=== PATIENT | male | born 1950 | race Caucasian/White ===

== ENCOUNTER 2024-02-25 19:21 | Inpatient (IN) | payer MEDICARE, OTHER ==
[~2024-02-25] VITALS: Ht 182.9 cm; Wt 106.1 kg
[2024-02-25] MEDS ORDERED: OXYCODONE/APAP 5-325 MG TABLET ONE (19:43)
[2024-02-25] MEDS ORDERED: LORAZEPAM 1 MG TABLET ONE (19:44)
[2024-02-25] MEDS ORDERED: CLONIDINE HCL 0.1 MG TABLET ONE (19:44)
[2024-02-25] MEDS ORDERED: LORAZEPAM 0.5 MG TABLET PO ONE (19:45)
[2024-02-25] MEDS: LORAZEPAM 0.5 MG TABLET PO ONE (19:49)
[2024-02-25] MEDS: OXYCODONE/APAP 5-325 MG TABLET PO ONE (19:50)
[2024-02-25] MEDS: CLONIDINE HCL 0.1 MG TABLET PO ONE (19:51)
[2024-02-25] MEDS ORDERED: METF-494 PO (19:56)
[2024-02-25] MEDS ORDERED: DULO40CA2 PO (19:56)
[2024-02-25] MEDS ORDERED: MORP15TA60 PO (19:56)
[2024-02-25] MEDS ORDERED: LISI10TA29 PO (19:56)
[2024-02-25] MEDS ORDERED: ALBU2.5V38 NEB (19:56)
[2024-02-25] MEDS ORDERED: GABA300T25 PO (19:56)
[2024-02-25] MEDS ORDERED: DICYCLOMINE HCL 20 MG TABLET ONE (20:30)
[2024-02-25] MEDS ORDERED: MAG HYDROX/AL HYDROX/SIMETH 30 ML LIQUID UDC ONE (20:30)
[2024-02-25] MEDS ORDERED: LIDOCAINE VISCUS 2% 15 ML UDC ONE (20:30)
[2024-02-25] MEDS ORDERED: DICYCLOMINE HCL LIQ 10 MG/5 ML UDC ONE (20:34)
[2024-02-25] MEDS: DICYCLOMINE HCL LIQ 10 MG/5 ML UDC PO ONE (20:40)
[2024-02-25] MEDS: LIDOCAINE VISCUS 2% 15 ML UDC MM ONE (20:40)
[2024-02-25] MEDS: MAG HYDROX/AL HYDROX/SIMETH 30 ML LIQUID UDC PO ONE (20:40)
[2024-02-25] MEDS ORDERED: MAGNESIUM HYDROXIDE 30 ML LIQUID UDC PO PRN (21:30)
[2024-02-25 21:54] VITALS: BP 179/84; TEMP 97.9; O2SAT 97
[2024-02-25] MEDS: TEMAZEPAM 7.5 MG CAPSULE PO PRN (22:16)
[2024-02-26] VITALS (7 sets, daily range): BP systolic 137–168; BP diastolic 83–92; TEMP 98–98.1; O2SAT 96–100
[2024-02-26] MEDS: LORAZEPAM 1 MG TABLET PO PRN (01:57)
[2024-02-26] MEDS: ACETAMINOPHEN 325 MG TABLET PO PRN (07:35)
[2024-02-26] MEDS ORDERED: MORPHINE SULFATE SR 15 MG TABLET.SA PO SCH (10:45)
[2024-02-26] MEDS: NICOTINE 14 MG/24HR PATCH TD SCH (12:06)
[2024-02-26] MEDS: GABAPENTIN 300 MG CAPSULE PO SCH (12:07)
[2024-02-26] MEDS: ALBUTEROL SULFATE 2.5 MG/3 ML NEBU NEB PRN (15:19)
[2024-02-26] MEDS: METFORMIN HCL 500 MG TABLET PO SCH (17:14)
[2024-02-26] MEDS: DULOXETINE 60 MG CAPSULE.DR PO SCH (17:14)
[2024-02-27 07:57] VITALS: BP 146/65; TEMP 98; O2SAT 96
[2024-02-27] MEDS: LISINOPRIL 20 MG TABLET PO SCH (08:41)
[2024-02-27] MEDS ORDERED: DULOXETINE 60 MG CAPSULE.DR PO SCH (09:00)
[2024-02-27 09:06] VITALS: O2SAT 96
[2024-02-27 09:21] VITALS: O2SAT 99
[2024-02-27] MEDS: MORPHINE SULFATE SR 15 MG TABLET.SA PO SCH (12:07)
[2024-02-27 15:22] VITALS: BP 142/87; TEMP 98.2; O2SAT 97
[2024-02-27 20:08] VITALS: BP 142/75; TEMP 97.8; O2SAT 96
[2024-02-28] VITALS (8 sets, daily range): BP systolic 124–154; BP diastolic 69–89; TEMP 98–98.2; O2SAT 95–100
[2024-02-29] VITALS (7 sets, daily range): BP systolic 121–162; BP diastolic 64–80; TEMP 98–98.2; O2SAT 94–99
[2024-02-29] MEDS: MAG HYDROX/AL HYDROX/SIMETH 30 ML LIQUID UDC PO PRN (21:17)
[2024-03-01 07:46] VITALS: BP 143/74; TEMP 98.2; O2SAT 98
[2024-03-01 16:51] VITALS: BP 99/49; TEMP 98; O2SAT 98
[2024-03-01 20:00] VITALS: BP 144/61; TEMP 97.5; O2SAT 94
[2024-03-01 21:13] VITALS: O2SAT 98
[2024-03-01 21:25] VITALS: O2SAT 98
[2024-03-02 07:46] VITALS: BP 117/50; TEMP 98; O2SAT 98
[2024-03-02] MEDS: CELECOXIB 200 MG CAPSULE PO SCH (11:58)
[2024-03-02 17:06] VITALS: BP 108/61; TEMP 98; O2SAT 98
[2024-03-02] MEDS: MELATONIN 3 MG TABLET PO SCH (20:01)
[2024-03-02 20:11] VITALS: BP 131/67; TEMP 98.1; O2SAT 98
[2024-03-03 08:10] LABS: BASOPHILS # (AUTO) 0.1 K/UL (0.0-0.2); BASOPHILS % (AUTO) 1.3 % (0.0-2.0); EOSINOPHILS # (AUTO) 0.2 K/uL (0.0-0.7); EOSINOPHILS % (AUTO) 4.5 % (0.0-7.0); HEMATOCRIT 41.5 % (36.7-47.1); HEMOGLOBIN 13.5 g/dL (12.5-16.3); LYMPHOCYTES # (AUTO) 1.2 K/uL (0.8-4.8); LYMPHOCYTES % (AUTO) 23.1 % (20.5-51.5); MEAN CORPUSCULAR HEMOGLOBIN 30.5 uug (23.8-33.4); MEAN CORPUSCULAR HGB CONC 33 g/dL (32.5-36.3); MEAN CORPUSCULAR VOLUME 93.5 fL (73.0-96.2); MONOCYTES # (AUTO) 0.5 K/uL (0.1-1.30); MONOCYTES % (AUTO) 9.9 % (0.0-11.0); NEUTROPHILS # (AUTO) 3.2 K/uL (1.8-8.9); NEUTROPHILS % (AUTO) 61.2 % (38.5-71.5); PLATELET COUNT (AUTO) 271 K/uL (152-348); RED BLOOD CELL COUNT(AUTO) 4.44 MIL/uL (4.06-5.63); RED CELL DISTRIBUTION WIDTH 14.2 % (12.1-16.2); WHITE BLOOD COUNT (AUTO) 5.2 K/uL (3.6-10.2)
[2024-03-03 08:20] LABS: ALBUMIN 3.4 g/dL (3.4-5.0); BILIRUBIN,TOTAL 0.7 mg/dL (0.2-1.0); CALCIUM 9.3 mg/dL (8.5-10.1); CREATININE 0.9 mg/dL (0.6-1.3); MAGNESIUM 2.4 mg/dL (1.8-2.4); PHOSPHOROUS 4.9 mg/dL (2.5-4.9); TOTAL PROTEIN, SERUM 7.2 g/dL (6.4-8.2)
[2024-03-03 08:25] VITALS: BP 106/62; TEMP 98.1; O2SAT 98
[2024-03-03 09:15] VITALS: O2SAT 95
[2024-03-03 09:25] VITALS: O2SAT 98; O2SAT 99
[2024-03-03 09:36] LABS: DIFFERENTIAL COMMENT 1
[2024-03-03 16:20] VITALS: BP 104/51; TEMP 98; O2SAT 98
[2024-03-03 19:50] VITALS: BP 110/53; TEMP 98.1; O2SAT 94
[2024-03-04 08:02] VITALS: BP 110/59; TEMP 98.2; O2SAT 96
[2024-03-04 15:38] VITALS: BP 93/51; TEMP 98; O2SAT 94
[2024-03-04 17:10] VITALS: O2SAT 95
[2024-03-04 17:20] VITALS: O2SAT 99
[2024-03-04 20:04] VITALS: BP 116/64; TEMP 98.1; O2SAT 94
[2024-03-05 09:40] VITALS: BP 109/50; TEMP 98.2; O2SAT 98
[2024-03-05 15:39] VITALS: BP 123/57; TEMP 98.2; O2SAT 95
[2024-03-05 20:00] VITALS: BP 106/53; TEMP 98; O2SAT 93
[2024-03-05 21:00] VITALS: O2SAT 95
[2024-03-05 21:10] VITALS: O2SAT 99
[2024-03-06 08:15] VITALS: BP 90/52; TEMP 98; O2SAT 99
[2024-03-06 15:47] VITALS: BP 90/44; TEMP 98.2; O2SAT 96
[2024-03-06 20:00] VITALS: BP 139/42; TEMP 98.1; O2SAT 100
[2024-03-07] MEDS: PANTOPRAZOLE SODIUM 40 MG TABLET.DR PO SCH (06:51)
[2024-03-07 07:58] VITALS: BP 136/62; TEMP 98; O2SAT 100
[2024-03-07 08:22] VITALS: BP 136/62
== END 2024-03-07 11:30 | DRG 885 ==
LOC: ER 19:24 → GPS 21:25
PROVIDERS: ADMIT Psychiatry & Neurology Psychosomatic Medicine; ATTEND Nurse Practitioner Acute Care
DX: F33.0 Major depressive disorder, recurrent, mild (principal); I11.0 Hypertensive heart disease with heart failure; I50.32 Chronic diastolic (congestive) heart failure; E87.1 Hypo-osmolality and hyponatremia; F17.210 Nicotine dependence, cigarettes, uncomplicated; E11.40 Type 2 diabetes mellitus with diabetic neuropathy, unspecified; E78.5 Hyperlipidemia, unspecified; J44.9 Chronic obstructive pulmonary disease, unspecified; K21.9 Gastro-esophageal reflux disease without esophagitis; G89.29 Other chronic pain; M54.50 Low back pain, unspecified; F10.20 Alcohol dependence, uncomplicated
CPT/HCPCS: 36415; 83735; 84100; 85025; 94640; 94664; 94760